=== PATIENT | female | born 1955 | race Caucasian/White ===

== ENCOUNTER → 2019-05-08 | Outpatient (CLI) | payer BC | LOC: RAD 13:09 | DX: Z12.31 Encounter for screening mammogram for malignant neoplasm of breast (principal) ==

== ENCOUNTER → 2019-05-10 | Outpatient (CLI) | payer BC | LOC: RAD 12:49 | DX: R92.1 Mammographic calcification found on diagnostic imaging of breast (principal) ==

== ENCOUNTER → 2020-01-08 | Outpatient (CLI) | payer OTHER | LOC: RAD 11-08 09:27 → BC 11-08 21:10 → RAD 12:52 | DX: R92.1 Mammographic calcification found on diagnostic imaging of breast (principal) ==

== ENCOUNTER → 2020-07-14 | Outpatient (CLI) | payer OTHER | LOC: ULTRA 09:12 → RAD 09:12 | PROVIDERS: ATTEND Obstetrics & Gynecology | DX: N60.02 Solitary cyst of left breast (principal); R92.1 Mammographic calcification found on diagnostic imaging of breast ==

== ENCOUNTER → 2021-08-31 | Outpatient (CLI) | payer OTHER | LOC: BC 09:17 → ULTRA 13:04 → BC 13:04 | PROVIDERS: ATTEND Obstetrics & Gynecology | DX: Z12.31 Encounter for screening mammogram for malignant neoplasm of breast (principal); N63.21 Unspecified lump in the left breast, upper outer quadrant; N63.24 Unspecified lump in the left breast, lower inner quadrant ==